=== PATIENT | male | born 1930 | race Caucasian/White ===

== ENCOUNTER 2017-01-23 22:17 | Inpatient (IN) | payer MEDICARE, OTHER ==
[~2017-01-23] VITALS: Ht 167.6 cm; Wt 52.2 kg
[2017-01-24 08:00] VITALS: BP 149/84
--- NOTE | 2017-01-24 08:00 | NUR ---
GPS/RN RECEIVED PT FROM CONDITIONER TUMBLER ARELIS RN TO CONTINUE WITH ADMISSION. PICTURES DONE AND FAMILY NOTIFIED BY CONDITIONER TUMBLER. ADMITTING ORDERS FROM DR BERMAN RECEIVED AND CARRIED OUT. NO SI OR HI ON ADMISSION. PT ANXIOUS, DEPRESSED BUT COOPERATIVE A/O X4. PT WAS DNR/DNI AT FACILITY. DR NG MADE AWARE OF ADMISSION.
[2017-01-24] MEDS ORDERED: ACETAMINOPHEN 325 MG TABLET PO PRN (08:30)
[2017-01-24] MEDS ORDERED: LORAZEPAM 0.5 MG TABLET PO PRN (08:30)
[2017-01-24] MEDS ORDERED: MAG HYDROX/AL HYDROX/SIMETH 30 ML UDC PO PRN (08:30)
[2017-01-24] MEDS ORDERED: ZOLPIDEM TARTRATE 5 MG TABLET PO PRN (08:30)
[2017-01-24] MEDS ORDERED: MAGNESIUM HYDROXIDE 30 ML UDC PO PRN (08:30)
[2017-01-24] MEDS ORDERED: POLY15DR40 EACHEYE (08:47)
[2017-01-24] MEDS ORDERED: APIX2.5T PO (08:47)
[2017-01-24] MEDS ORDERED: ZINC50TA37 PO (08:47)
[2017-01-24] MEDS ORDERED: LISI-607 PO (08:47)
[2017-01-24] MEDS ORDERED: SIMV20TA6 PO (08:47)
[2017-01-24] MEDS ORDERED: HYDR-552 PO (08:47)
[2017-01-24] MEDS ORDERED: ASCO500T9 PO (08:47)
[2017-01-24] MEDS ORDERED: BUDE3CAP2 PO (08:47)
[2017-01-24] MEDS ORDERED: ALPR0.5T8 PO ×2 (08:47)
[2017-01-24] MEDS ORDERED: ESCI10TA PO (08:47)
[2017-01-24] MEDS ORDERED: LIDO30AD10 TP (08:47)
[2017-01-24] MEDS: ESCITALOPRAM OXALATE (10 MG) 10 MG TABLET PO SCH (11:23)
[2017-01-24] MEDS ORDERED: BUDESONIDE 3 MG CAP.SR.24H PO SCH (14:00)
[2017-01-24] MEDS ORDERED: HYDROCODONE/APAP 5/325MG 1 EACH TABLET PO PRN (14:00)
[2017-01-24] MEDS ORDERED: SIMVASTATIN 20 MG TABLET PO SCH (14:00)
[2017-01-24] MEDS ORDERED: POLYVINYL ALCOHOL 15 ML BOTTLE EACHEYE PRN (14:30)
[2017-01-24] MEDS: LISINOPRIL (5MG) 5 MG TABLET PO SCH (14:47)
[2017-01-24] MEDS: ASCORBIC ACID 500 MG TABLET PO SCH (14:47)
--- NOTE | 2017-01-24 15:04 | NUR ---
CRYSTAL spoke with Gladys from [facility] who will be arranging hospice care for patient. Gladys stated that the family is looking more for companionship for patient and that they are working together to make that happen. Gladys asked CRYSTAL to give her a definite time/day for discharge. CRYSTAL stated that she will follow up on Friday morning.
--- NOTE | 2017-01-24 15:43 | NUR ---
Initial Discharge Plan: Per patient, he resides in an assisted living facility; [address] [facility] [address] [place] [address] / [phone] and wishes to return. CRYSTAL spoke with patient's son and DPOA Thomsa [phone] who stated that the family is working to arrange hospice care with the facility. CRYSTAL asked Thomas to fax over DPOA paperwork, which he did. CRYSTAL will follow up on Friday and will work to arrange safe and proper discharge.
[2017-01-24 16:12] VITALS: BP 129/63
[2017-01-24 16:46] LABS: ALANINE AMINOTRANSFERASE 12 U/L (12-78); ALBUMIN 3.9 g/dL (3.4-5.0); ALKALINE PHOSPHATASE 49 U/L (46-116); ASPARTATE AMINOTRANSFERASE 26 U/L (15-37); BILIRUBIN,TOTAL 0.8 mg/dL (0.2-1.0); CALCIUM, SERUM 8.6 mg/dL (8.5-10.1); CARBON DIOXIDE 29 mmol/L (21-32); CHLORIDE 105 mmol/L (98-107); CREATININE 1.2 mg/dL (0.6-1.3); GLUCOSE 115 mg/dL (74-106); POTASSIUM 4.4 mmol/L (3.5-5.1); SODIUM SERUM 140 mmol/L (136-145); TOTAL PROTEIN, SERUM 7.4 g/dL (6.4-8.2); UREA NITROGEN, BLOOD 19 mg/dL (7-18)
[2017-01-24 16:48] LABS: CHOLESTEROL 136 mg/dL (<200); HDL CHOLESTEROL 60 mg/dL (40-60); LDL 71 mg/dL (0-99); TRIGLYCERIDES 66 mg/dL (30-150)
--- NOTE | 2017-01-24 19:54 | NUR ---
GPS/RN NOTE: AWAKE, ALERT, ORIENTED X3, CALM AND PLEASANT. DENIES ANY SI, DEPRESSED, COOPERATIVE. NO ACUTE DISTRESS NOTED.
[2017-01-24 20:00] VITALS: BP 140/67
[2017-01-24] MEDS: SIMVASTATIN 20 MG TABLET PO SCH (22:02)
[2017-01-24] MEDS: APIXABAN 2.5 MG TABLET PO SCH (22:03)
[2017-01-24 22:23] LABS: HEMATOCRIT 43 % (39-51); HEMOGLOBIN 14.3 g/dL (13.5-17.5); MEAN CORPUSCULAR HEMOGLOBIN 32 PG (26.0-33.0); MEAN CORPUSCULAR HGB CONC 34 g/dl (31.0-36.0); MEAN CORPUSCULAR VOLUME 95 fL (80-96); NEUTROPHILS % (AUTO) 67.5 % (43.0-81.0); PLATELET COUNT (AUTO) 151 /CMM (150-450); RDW COEFFICIENT OF VARIATION 13.3 (11.5-15.0); WHITE BLOOD COUNT (AUTO) 6.8 K/uL (4.3-11.0)
[2017-01-24 22:24] LABS: BASOPHILS # (AUTO) 0.1 /CMM (0.0-0.2); EOSINOPHILS # (AUTO) 0.2 /CMM (0.0-0.7); EOSINOPHILS % (AUTO) 3.2 % (0.0-6.0); LYMPHOCYTES # (AUTO) 1.4 /CMM (0.8-4.8); LYMPHOCYTES % (AUTO) 20.5 % (20.0-44.0); MONOCYTES # (AUTO) 0.5 /CMM (0.1-1.30); MONOCYTES % (AUTO) 7.8 % (2.0-12.0); NEUTROPHILS # (AUTO) 4.6 /CMM (1.8-8.9); RED BLOOD CELL COUNT(AUTO) 4.51 MIL/uL (4.5-6.0)
[2017-01-25 07:00] LABS: CHOLESTEROL 137 mg/dL (<200); HDL CHOLESTEROL 55 mg/dL (40-60); LDL 71 mg/dL (0-99); TRIGLYCERIDES 81 mg/dL (30-150)
[2017-01-25 07:05] LABS: ALANINE AMINOTRANSFERASE 23 U/L (12-78); ALBUMIN 3.6 g/dL (3.4-5.0); ALKALINE PHOSPHATASE 46 U/L (46-116); ASPARTATE AMINOTRANSFERASE 23 U/L (15-37); BILIRUBIN,TOTAL 0.8 mg/dL (0.2-1.0); CALCIUM, SERUM 8.5 mg/dL (8.5-10.1); CARBON DIOXIDE 29 mmol/L (21-32); CHLORIDE 104 mmol/L (98-107); CREATININE 1.1 mg/dL (0.6-1.3); GLUCOSE 99 mg/dL (74-106); POTASSIUM 3.4 mmol/L (3.5-5.1); SODIUM SERUM 139 mmol/L (136-145); TOTAL PROTEIN, SERUM 6.8 g/dL (6.4-8.2); UREA NITROGEN, BLOOD 18 mg/dL (7-18)
[2017-01-25 08:00] VITALS: BP 147/60
[2017-01-25] MEDS: APIXABAN 2.5 MG TABLET PO SCH ×2 (08:45→17:13)
[2017-01-25] MEDS: ZINC SULFATE 220 MG CAPSULE PO SCH (08:45)
[2017-01-25] MEDS: LISINOPRIL (5MG) 5 MG TABLET PO SCH (08:46)
[2017-01-25] MEDS: ASCORBIC ACID 500 MG TABLET PO SCH (08:46)
[2017-01-25] MEDS: BUDESONIDE 3 MG CAP.SR.24H PO SCH (08:46)
[2017-01-25] MEDS: ESCITALOPRAM OXALATE (10 MG) 10 MG TABLET PO SCH (08:47)
[2017-01-25] MEDS: Z GUARD REMEDY 2 OZ OINT TP SCH (08:48)
[2017-01-25] MEDS ORDERED: LIDOCAINE 5% (PATCH) 1 EA PATCH TP PRN (09:00)
[2017-01-25] MEDS ORDERED: POTASSIUM CHLORIDE 20 MEQ TAB.PRT.SR PO SCH (11:30)
--- NOTE | 2017-01-25 15:22 | NUR ---
FOOD INSPECTOR-NOTES DR. NG MADE AWARE OF PATIENT MRSA NARES POSITIVE WITH THE T.O ORDER OF BACTROBAN Q12 HR. X5 DAYS. NOTED AND CARRIED OUT.
[2017-01-25 16:00] VITALS: BP_SYST 114; BP_SYST 135; BP_DIAS 80; BP_DIAS 85
[2017-01-25] MEDS: ALPRAZOLAM 0.25 MG TABLET PO SCH (17:13)
--- NOTE | 2017-01-25 19:30 | NUR ---
GPS/DUMPLING MACHINE OPERATOR; RECEIVED PT IN BED ON SUPINE POSITION SLEEPING . BREATHING NON LABORED AND MIC. NO S/S OF DISTRESS. BED ON LOWER POSITION AND LOCKED FOR SAFETY. SIDE RAILS X 3 ARE UP FOR SAFETY. PT ON CONTACT ISOLATION OBSERVED. WILL CONTINUE TO MONITOR.
[2017-01-25 20:00] VITALS: BP 110/61
[2017-01-25] MEDS: MUPIROCIN OINT 2% 22 GM TUBE SCH (21:57)
[2017-01-25] MEDS: SIMVASTATIN 20 MG TABLET PO SCH (21:58)
--- NOTE | 2017-01-26 06:27 | NUR ---
GPS/ENGAGEMENT QUALITY CONSULTANT; SLEPT FOR 6 HOURS LAST NIGHT. BREATHING NON LABORED. MADE NO C/O. WILL CONTINUE TO MONITOR.
[2017-01-26 08:05] VITALS: BP 130/70
[2017-01-26] MEDS: LISINOPRIL (5MG) 5 MG TABLET PO SCH (09:00)
[2017-01-26] MEDS: Z GUARD REMEDY 2 OZ OINT TP SCH (10:01)
[2017-01-26] MEDS: MUPIROCIN OINT 2% 22 GM TUBE SCH ×2 (10:02→21:44)
[2017-01-26] MEDS: APIXABAN 2.5 MG TABLET PO SCH ×2 (10:40→17:15)
[2017-01-26] MEDS: BUDESONIDE 3 MG CAP.SR.24H PO SCH (10:40)
[2017-01-26] MEDS: ASCORBIC ACID 500 MG TABLET PO SCH (10:40)
[2017-01-26] MEDS: ZINC SULFATE 220 MG CAPSULE PO SCH (10:40)
[2017-01-26] MEDS: ALPRAZOLAM 0.25 MG TABLET PO SCH ×2 (10:41→17:15)
[2017-01-26] MEDS: ESCITALOPRAM OXALATE (10 MG) 10 MG TABLET PO SCH (10:41)
[2017-01-26 15:39] VITALS: BP 128/76
[2017-01-26 19:47] VITALS: BP 101/45
[2017-01-26 19:56] VITALS: BP 101/45
[2017-01-26] MEDS: SIMVASTATIN 20 MG TABLET PO SCH (21:44)
[2017-01-27 08:18] VITALS: BP 154/73
[2017-01-27] MEDS: ZINC SULFATE 220 MG CAPSULE PO SCH (08:46)
[2017-01-27] MEDS: ESCITALOPRAM OXALATE (10 MG) 10 MG TABLET PO SCH (08:46)
[2017-01-27] MEDS: ALPRAZOLAM 0.25 MG TABLET PO SCH ×2 (08:46→16:30)
[2017-01-27] MEDS: LISINOPRIL (5MG) 5 MG TABLET PO SCH (08:47)
[2017-01-27] MEDS: ASCORBIC ACID 500 MG TABLET PO SCH (08:47)
[2017-01-27] MEDS: BUDESONIDE 3 MG CAP.SR.24H PO SCH (08:48)
[2017-01-27] MEDS: APIXABAN 2.5 MG TABLET PO SCH ×2 (08:48→16:30)
[2017-01-27] MEDS: MUPIROCIN OINT 2% 22 GM TUBE SCH ×2 (08:49→21:00)
[2017-01-27] MEDS: Z GUARD REMEDY 2 OZ OINT TP SCH (08:49)
--- NOTE | 2017-01-27 10:06 | NUR ---
WOUND CARE CONSULT PATIENT SEEN AND SKIN ASSESSED. PATIENT NOTED TO BLANCHING REDNESS AND DRY SKIN ON SACRUM AND BUTTOCKS, AND MULTIPLE BRUISES AND HEALING DRY SCABS ON UPPER AND LOWER EXTREMITIES. ZGUARD ORDERED WELL TURNING SCHEDULE TO ASSIST IN PATIENT TURNING. WOUND TREATMENT ORDERED AND DISCUSSED WITH NURSING STAFF AT THE BEDSIDE. PATIENT JOSE 18. PT ON STRIKER GEL MATTRESS. MD IN AGREEMENT WITH TREATMENT PLAN. WILL CONTINUE TO FOLLOW PATIENT NEEDED. Addendum: 01/27/17 at 1008 by EDY ARIAS RN Amended: Links added.
[2017-01-27 15:38] VITALS: BP 106/60
--- NOTE | 2017-01-27 16:00 | NUR ---
GPS/RN PATIENT REFUSED PICTURE OF SACRUM X 3, EXPLAINED RISKS AND BENEFITS.
[2017-01-27 19:43] VITALS: BP 111/41
[2017-01-27] MEDS: SIMVASTATIN 20 MG TABLET PO SCH (21:51)
--- NOTE | 2017-01-27 22:00 | NUR ---
Meds taken without any fuss. Pleasant and coopertive.Able to move on his own. No distress noted or voiced.will continue to monitor pt for his safety.
--- NOTE | 2017-01-28 06:17 | NUR ---
Slept most of night. No distress noted. Will continues to keep safe.
[2017-01-28] MEDS: ZINC SULFATE 220 MG CAPSULE PO SCH (08:38)
[2017-01-28] MEDS: MUPIROCIN OINT 2% 22 GM TUBE SCH (08:38)
[2017-01-28] MEDS: ASCORBIC ACID 500 MG TABLET PO SCH (08:38)
[2017-01-28] MEDS: ESCITALOPRAM OXALATE (10 MG) 10 MG TABLET PO SCH (08:38)
[2017-01-28] MEDS: Z GUARD REMEDY 2 OZ OINT TP SCH (08:38)
[2017-01-28] MEDS: LISINOPRIL (5MG) 5 MG TABLET PO SCH (08:38)
[2017-01-28] MEDS: APIXABAN 2.5 MG TABLET PO SCH (08:39)
[2017-01-28] MEDS: BUDESONIDE 3 MG CAP.SR.24H PO SCH (08:39)
[2017-01-28] MEDS: ALPRAZOLAM 0.25 MG TABLET PO SCH (08:39)
[2017-01-28 11:05] VITALS: BP 143/69
--- NOTE | 2017-01-28 11:30 | NUR ---
GPS/RN PATIENT CLEARED FOR DISCHARGE BY DR BERMAN AND DR SIDDIQI TO [address] [place] [address] / [phone] via transportation arranged through [facility], non-emergency transport. ALL/D/C PAPER WORK COMPLETED, MEDICATIONS, PACKET AND AFTER CARE PLAN EXPLAINED TO PATIENT, VERBALIZED UNDERSTANDING. PATIENT STATED THAT HE DID NOT KNOW WHAT PHARMACY HE USES, STATED THAT HE HAD THE MEDICATIONS AT THE FACILITY. PRESCRIPTION INCLUDED IN PACKET AND EXPLAINED TO PATIENT, GAVE INSTRUCTIONS TO FILL PRESCRIPTIONS AT HIS PREFERRED PHARMACY SOON POSSIBLE. PATIENT REFUSED D/C PHOTOS, STATED " THEY JUST TOOK PICTURES YESTERDAY", EXPLAINED RISKS AND BENEFITS. PATIENT DENIES SI/HI/AH UPON DISCHARGE,BELONGINGS RETURNED AND SIGNED FOR BY PATIENT. PATIENT DENIES SI/HI/AH AT TIME OF DISCHARGE, LEFT UNIT CALM, COOPERATIVE, NO DISTRESS NOTED WITH LOCKSTITCH LINING SETTER AND TRANSPORT AT SIDE.
--- NOTE | 2017-01-28 11:58 | NUR ---
Discharge Note Patient will be discharged to [facility] [address] [facility] [address] [place] [address] / [phone] via transportation arranged through [facility], non-emergency transport. Patients family and son and Thomas PEREZ [phone] have been notified and are in agreement with the plan. Patient will follow up with his medical doctor, Dr. Shaw Garcia [address] [place] [phone] on Monday 01/29 at 11am. Currently, patient does not have psychiatrist. When social science analyst spoke with his home care liaison, Gladys at [facility] [phone], she was informed that they are in the process of assigning a psychiatrist / mental health specialist. Gladys informed SW that a licensed clinical social science analyst will also follow up with patient. Patient is not a smoker and does not use drugs/ alcohol.
== END 2017-01-28 11:30 | DRG 885 ==
LOC: GPS 01-24 02:10
PROVIDERS: ADMIT Psychiatry & Neurology Psychiatry; ATTEND Psychiatry & Neurology Psychiatry
DX: F33.2 Major depressive disorder, recurrent severe without psychotic features (principal); D68.59 Other primary thrombophilia; I69.354 Hemiplegia and hemiparesis following cerebral infarction affecting left non-dominant side; R45.851 Suicidal ideations; I48.91 Unspecified atrial fibrillation; E78.5 Hyperlipidemia, unspecified; G43.909 Migraine, unspecified, not intractable, without status migrainosus; F41.9 Anxiety disorder, unspecified; K21.9 Gastro-esophageal reflux disease without esophagitis; I10 Essential (primary) hypertension; M19.90 Unspecified osteoarthritis, unspecified site; T50.902D Poisoning by unspecified drugs, medicaments and biological substances, intentional self-harm, subsequent encounter; Z79.899 Other long term (current) drug therapy; I25.10 Atherosclerotic heart disease of native coronary artery without angina pectoris
CPT/HCPCS: 36415; 80053-TC; 80061-TC; 85025-TC; 87081-TC